=== PATIENT | female | born 2000 | race Caucasian/White ===

== ENCOUNTER 2025-08-20 01:05 | Day surgery (SDC) | payer OTHER, SELFPAY ==
[2025-08-12 15:01] VITALS: BMI 19.3
--- NOTE | 2025-08-12 15:09 | PC.NURSE ---
[facility] has started construction of its new state of the art ER which will open Spring 2026. With this, we anticipate parking may be a challenge for some our surgical patients and families. Parking spaces are limited but are available for all Surgical, obstetrics, and ER patients sharing this lot. If you arrive and find you are having a hard time finding a parking space, please note that we understand the challenges, please drive around the hospital and park near Hospital Entrance 1. When you enter this entrance, you can ask a volunteer to direct or take you back to the surgical waiting area to check in. We appreciate everyone?s understanding of these expected challenges while we build for your future. Report to the Outpatient Waiting Room, entrance under the green pavilion located off [address], at time __1130 on date _08/20/2025 . Planned Procedure Time: _1330 .? Time changes happen often and if your time is changed the preop area will call you the afternoon before. - You and your visitor will be asked to self-screen and do not enter if you have any COVID symptoms. Please call surgeon if you need to reschedule. - A mask is optional within the hospital at this time. Patients may have clear liquids (water, carbonated beverages, clear teas, apple juice) until 3 hours prior to surgery with a maximum of 20 ounces. - No food from midnight until time of surgery and no smoking, or chewing tobacco (or any form of nicotine). No chewing gum, candy or mints. - Infants may have breast milk until 4 hours before surgery, formula 6 hours prior to surgery. - Children will be allowed to drink immediately following surgery.? If applicable, please bring a bottle or sippy cup to assist with drinking. Juice, water, soda, and popsicles are readily available.? For infants on formula, please bring formula the day of surgery.? Pacifiers are allowed. Take only the following medications with a SIP of water on the morning of surgery: ____N/A DO NOT STOP ANY OF YOUR OTHER PRESCRIPTION MEDICATIONS PRIOR TO SURGERY EXCEPT THE FOLLOWING Hold all vitamins and supplements for 3 days per anesthesiologist. Medications to discontinue per physician ____N/A Date to take last dose N/A Please no make-up, nail ukrainian, hairspray, perfume, deodorant, or body powder the day of surgery.? No jewelry (including any body piercings) or valuables the day of surgery, leave them at home.? Please take a shower or bath the night before, or the morning of, surgery with an antibacterial soap.? Wear comfortable, loose fitting clothing.? Children are encouraged to wear pajamas. - Jewelry must be removed prior to entering the operating room.? Rings and piercings that are not removed may be cut off. - The hospital will not accept responsibility for valuables.? - Please leave all valuables, including medications, at home the day of surgery. If you are going home after surgery, a licensed patrol driver must drive you home.? - NO public transportation without another adult if you receive anesthesia. - We recommend that an adult stay with you for 24 hours following discharge. - We also recommend that you do not drive, make important decision, drink alcoholic beverages, or take any drugs that were not prescribed by your health care provider for at least 24 hours after your discharge time. For Pediatric surgeries, we recommend two adults accompany the child home. Follow any additional instructions given to you from your surgeon. Telephone instructions given to Ariadna and asked if any additional questions and then verbalized understanding. Patient advised to call surgeon office or pre surgery nurse liaison [phone] if any additional questions.
[2025-08-20] VITALS (9 sets, daily range): BP systolic 92–116; BP diastolic 58–73; PULSE 55–82; RESP 12–16; TEMP 36.5–36.9; O2SAT 97–100; BMI 20.7
--- OUTSIDE RECORDS SUMMARY | 2025-08-20 01:08 | XMS_ITS | Encounter Summary ---
Author Organization [facility] Address [address] [place] [address] Care Team Providers Care Project Coordinator Name Role Phone Emmanuel Brito MD Primary Care Provide r Encounter Details Date Type Department Care Team (Late st Contact Info) Description 12/23/2022 [facility] [id number] [address] [place] [address] [facility] Provider Schedule Appointment for Annual Physical Social History Tobacco Use Types Packs/Day Years Used Date Smoking Tobacco: Never Passive Smoke Exposure: Never Smokeless Tobacco: Never Alcohol Use Standard Drinks/Week Comments No 0 (1 standard drink = 0.6 oz pur e alcohol) AUDIT-C Answer Date Recorded Frequency of Alcohol Consumption Never 09/22/2018 Average Number of Drinks Not on file 019 Frequency of Binge Drinking Not on file 08/2018 PHQ-2 Answer Date Recorded Patient Health Questionnaire-2 Score 0 11/26/2022 Comments No Sex and Gender Information Value Date Recorded Sex Assigned at Not on file Legal Sex Female 11:14 PM CDT Gender Identity Not on file Sexual Orientation Not on file COVID-19 Exposure Response Date Recorded In the last 10 days, have yo u been in contact with someone who was confirmed or suspected to have Coronavirus/COVID-19? No / Unsure 11/26/2022 12:35 PM CDT documented as of this encounter Plan of Treatment Not on file documented as of this encounter Visit Diagnoses Not on filedocumented in this encounter Additional Health Concerns Assessment Noted Time PHQ-9 Depression Total Score: 0 11/12/19 22 2:10 PM CDT documented as of this encounter Care Teams Project Coordinator Relationship Specialty [place] [address] [place] [address] PCP - General INTERNAL MEDICINE 09/22/18 documented as of this encounter
--- OUTSIDE RECORDS SUMMARY | 2025-08-20 01:08 | XMS_ITS | Clinical Summary ---
Author Organization [facility] Address [address] [place] [address] Care Team Providers Care Enrollment Clerk Name Role Phone Emmanuel Brito MD Primary Care Provide r Allergies Active Allergy Reactions Criticality Noted Date Comments Amoxicillin Diarrhea,Nausea and Vomiting Low 2015 Medications fluticasone propionate (FLONASE) 50 MCG/ACT nasal sprayIndications:Va somotor rhinitis 2 sprays by Nasal route daily. 16 g 11 08/23/19 20 Active Additional Information Patient taking differently:2 spray NasalDAILY PRN, Reported on 11/26/2022 Levocetirizine Dihydrochloride (XYZAL OR) Take 1 tablet by mouth daily. Active clindamycin 1 % lotion Apply topically nightly at bedtime. apply to face at bedtime 07/02/20 20 Active mupirocin 2 % ointmentIndications :Plantar wart Apply topically 2 (two) times daily. 22 g 08/20/20 20 Active tretinoin (RETIN-A) 0.05 % cream APPLY 1 APPLICATION TO FACE AT BEDTIME X 30 DAYS 11/11/19 23 Active pantoprazole EC (PROTONIX) 40 MG tabletIndications:G astroesophageal reflux disease without esophagitis Take 1 tablet (40 mg total) by mouth daily. 30 tablet 5 11/27/19 23 Active Active Problems Problem Noted Date Diagnosed Date Allergic rhinitis caused by mold 06/17/2021 Allergic rhinitis, seasonal 06/17/2021 Chronic constipation 08/30/2020 Plantar callus 08/20/2020 Adolescent idiopathic scoliosis, thoracic region 03/30/2016 Immunizations Immunization Administration Dates Next Due Dtap (Generic) 04/02/2008, 4,01/16/2003,2002 ,2002 Hepatitis B 07/12/2003,03/07/2003,2002 Hib Vaccine, Prp-Omp 07/12/2003,2002,09/07 Influenza Adult (Generic) 07/14/2015 MMR (Generic) 04/02/2008,10/18/2003 Meningococcal (Menactra) 03/31/2020 Meningococcal Vac A,C,Y,W-135 Sc 03/01/2014 Pneumococcal (Prevnar 13) 07/12/2003,01/16/2003, 2002 Polio Ipv (Generic) 04/02/2008,10/18/2003,2002,2002 Tdap (Generic) 02/19/2024,03/01/2014 Varicella Vaccine 04/02/2008,07/12/2003 Family History Medical History Relation Comments None Brother None Father None Maternal Aunt Kidney Disease Maternal Grandfather Stroke Maternal Grandfather None Maternal Grandmother None Mother None Paternal Aunt None Paternal Grandfather None Paternal Grandmother None Paternal Uncle Relation Status Comments Brother Father Alive Maternal Aunt Maternal Grandfather Maternal Grandmother Alive Mother Alive Paternal Aunt Paternal Grandfather Alive Paternal Grandmother Alive Paternal Uncle Social History Tobacco Use Types Packs/Day Years Used Date Smoking Tobacco: Never Passive Smoke Exposure: Never Smokeless Tobacco: Never Tobacco Cessation:Counseling Given: Not Answered Alcohol Use Standard Drinks/Week Comments No 0 [...] on file Sexual Orientation Not on file Last Filed Vital Signs Vital Sign Reading Time Taken Comments Blood Pressure 120/64 10/28/2020 9:55 AM CARPORT ERECTOR Pulse 92 10/28/2020 9:55 AM CARPORT ERECTOR Temperature 36.9 C (98.4 F) 10/28/2020 9:55 AM CARPORT ERECTOR Respiratory Rate 16 10/28/2020 9:55 AM CARPORT ERECTOR Oxygen Saturation 98% 10/28/2020 9:55 AM CARPORT ERECTOR Inhaled Oxygen Concentration - - Weight 77.5 kg (170 lb 14.4 oz) 10/28/2020 9:55 AM CARPORT ERECTOR Height 165.1 cm (5' 5) 08/29/2020 2:06 PM CARPORT ERECTOR Body Mass Index 28.44 08/29/2020 2:06 PM CARPORT ERECTOR Plan of Treatment Health Maintenance Due Date Last Done Comments Cervical Cancer Screening Pap Smear (Age 21 to 29) Every 3 Years 2002 Cervical Cancer Screening 2002 HPV Vaccines (1 - 3-dose series) 2017 Meningococcal B Vaccine (1 of 2 - Standard) 2018 Hepatitis C 2020 Annual Physical 03/31/2021 03/31/2020, 03/26/2019 PHQ-2 ([employer]ician [employer] [place]) 08/22/2024 COVID-19 Vaccine ( season) 2025 07/08/2022, 06/17/2022 Influenza Adult (#1) 2025 06/13/2023, 06/17/2022, 07/14/2015 DTaP, Tdap and Td Vaccines (8 - Td or Tdap) 02/18/2034 02/19/2024, 03/01/2014, 04/02/2008, Additional history exists Hepatitis B Vaccines Completed 07/12/2003, 03/07/2003, 2002 Pneumococcal Vaccine: Pediatrics (0 to 5 Years) and At-Risk Patients (6 to 49 Years) Completed 07/12/2003, 01/16/2003, 2002 Meningococcal Vaccine Completed 03/31/2020, 014 Hepatitis A Vaccines Aged Out No long er eligible based on patient's age to complete this topic RSV Immunizations Under 20 Months Aged Out No longer eligible based on patient's age to complete this topic Insurance [facility] [place] [id number] [facility] Jamn [facility] [place] [address] [facility] Care Teams Enrollment Clerk Relationship Specialty [place] [address] [place] [address] PCP - General INTERNAL MEDICINE 09/22/18
--- OUTSIDE RECORDS SUMMARY | 2025-08-20 01:08 | XMS_ITS | Encounter Summary ---
Author Organization [facility] Address [address] [place] [address] Care Team Providers Care Porcelain Turner Name Role Phone Emmanuel Brito MD Primary Care Provide r Encounter Details Date Type Department Care Team (Late st Contact Info) Description 01/23/2025 Lab Requisition [facility] - DermPath Lab [address] [facility] [facility] [place] [place] [address] Radha Reynoso MD [address] [facility] [address] [place] [address] Social History Tobacco Use Types Packs/Day Years Used Date Smoking Tobacco: Never Assessed Comments Unknown Sex and Gender Information Value Date Recorded Sex Assigned at Not on file Legal Sex Female 9:41 AM CDT Gender Identity Not on file Sexual Orientation Not on file documented as of this encounter Plan of Treatment Not on file documented as of this encounter Procedures Procedure Name Priority Date/Time Associated Diagnosis Comments DERMATOPATHOLOGY Routine 01/23/2025 9:02 AM CDT documented in this encounter Results * DERMATOPATHOLOGY (01/23/2025 9:02 AM CDT) Case Report Dermatopathology Report Case: [id number] Authorizing Provider: Radha Reynoso MD Collected: 01/23/2025 09:02 AM Ordering Location: [facility] - Received: 01/24/2025 08:02 AM DermPath Lab Pathologist: Nael Hayden MD Specimen: Skin, upper back 12:41 PM CDT DERMATOPATHOLOGY LABORATORY Final Diagnosis Specimen A. SKIN, upper back: LENTIGINOUS MELANOCYTIC NEVUS, COMPOUND TYPE, IRRITATED (D22.5) 12:41 PM T DERMATOPATHOLOGY LABORATORY at 1241 CDT Clinical History Nevus R/O Atypia Irregular Color Irregular border 12:41 PM CDT DERMATOPATHOLOGY LABORATORY Gross Description Specimen A: Received is one formalin filled container labeled with the patient's name and designated upper back. The specimen consists of a shave biopsy measuring 6x4x1 mm. Jar 0. 12:41 PM CDT DERMATOPATHOLOGY LABORATORY Microscopic Description Specimen A. SKIN, upper back: This is a compound nevus. There is melanin pigment in the stratum corneum. There is a lentiginous proliferation of melanocytes between nevus nests of cells along the dermal epidermal junction. There is underlying fibroplasia of the papillary dermis. The intradermal component is bland in appearance and matures with depth. (Compound Harinder's Nevus) 12:41 PM CDT DERMATOPATHOLOGY LABORATORY Disclaimer An external and internal positive and negative controls are appropriate for the histochemical, immunohistochemical and immunofluorescence stain(s) in this case (if any), except where stated explicitly. The performance characteristics of the stain(s) cited in this report were developed and its performance characteristic determined by the Dermatopathology Laboratory at [facility], directed by Dr. Brenna Hayden. These tests need not be, and therefore are not, approved by the [place] Food and Drug Administration. The tests are used for clinical purposes. Billing Codes Specimen Charges Stain Charges 19909 1 12:41 PM CDT DERMATOPATHOLOGY LABORATORY Embedded Images 12:41 PM CDT DERMATOPATHOLOGY LABORATORY Pathology/Cytolo gy TISSUE SPECIMEN FROM SKIN / Unknown 01/23/2025 9:02 AM CDT 01/24/2025 8:02 AM CDT us Radha Reynoso MD LAB - PATHOLOGY/CYTOLOGY OR DERABLES Final Result DERMATOPATHOLOGY LABORATORY [facility] - Department of Dermatology [address], [address] [phone] documented in this encounter Visit Diagnoses Not on filedocumented in this encounter Care Teams Porcelain Turner Relationship Specialty Start Date End Date Emmanuel Brito MD [address] [place] [address] PCP - General Pediatrics 11/25/16 documented as of this encounter
--- OUTSIDE RECORDS SUMMARY | 2025-08-20 01:08 | XMS_ITS | Clinical Summary ---
Author Organization [employer] [facility] Address [address] [facility] [email or web address] [address] Care Team Providers Care Procurement Accountant Name Role Phone Pcp, No Primary Care Provider [phone] Social History Tobacco Use Types Packs/Day Years Used Date Smoking Tobacco: Never Assessed Comments Unknown Sex and Gender Information Value Date Recorded Sex Assigned at Not on file Legal Sex Female 1:25 PM EDT Gender Identity Not on file Sexual Orientation Not on file Plan of Treatment Not on file Medical Devices Not on file Insurance [facility] [place] [address] [employer] Care Teams Procurement Accountant Relationship Specialty Start Date End Date Pcp, Lidia PCP - General Family Medicine 09/04/21
--- OUTSIDE RECORDS SUMMARY | 2025-08-20 01:08 | XMS_ITS | Clinical Summary ---
Author Organization [facility] Address [address] [place] [address] Care Team Providers Care Train Attendant Name Role Phone Emmanuel Brito MD Primary Care Provider Allergies Active Allergy Reactions Criticality Noted Date Comments Amoxicillin Unknown 05/31/2019 Medications ENSKYCE 0.15-0.03 mg per tablet 3 03/06/2019 Activ e tretinoin (RETIN-A) 0.1 % cream 0 04/16/2019 Active Active Problems Problem Noted Date Diagnosed Date Adolescent idiopathic scoliosis 11/23/2016 Immunizations Immunization Administration Dates Next Due DTaP, Unspecified 04/02/2008, 4,01/16/2003,2002,0 2002 Hep B, Unspecified 07/12/2003,03/07/2003, 002 HiB 07/12/2003,2002,2002 MMR 04/02/2008,10/18/2003 Meningococcal MCV4P (Menactra) 03/01/2014 Pneumococcal Conjugate PCV 13 07/12/2003, 003,2002 Polio, Unspecified 04/02/2008,10/18/2003, 003,2002 Tdap 03/01/2014 Varicella 04/02/2008,07/12/2003 Social History Tobacco Use Types Packs/Day Years Used Date Smoking Tobacco: Never Smokeless Tobacco: Never Alcohol Use Standard Drinks/Week Comments Never 0 (1 standard drink = 0.6 oz pur e alcohol) AUDIT-C Answer Date Recorded Frequency of Alcohol Consumption Never 05/08/2019 Average Number of Drinks Not on file 019 Frequency of Binge Drinking Not on file 04/22 Personal Safety Answer Date Recorded Getting School Help Needed Not on file 11/04 Comments Unknown Sex and Gender Information Value Date Recorded Sex Assigned at Not on file Legal Sex Female 6:02 AM SHIFT SUPERINTENDENT CAUSTIC CRESYLATE Gender Identity Not on file Sexual Orientation Not on file Plan of Treatment Not on file Insurance [facility] [place] [id number] [address] [place] [facility] [place] [id number] [facility] PPO [facility] PPO Care Teams Train Attendant Relationship Specialty Start Date End Date Emmanuel Brito MD PCP - General 12/08/16
--- OUTSIDE RECORDS SUMMARY | 2025-08-20 01:08 | XMS_ITS | Clinical Summary ---
Author Organization [facility] Care Team Providers Care Morphology Teacher Name Role Phone Unavailable Primary Care Provider Unavailabl e Social History Tobacco Use Types Packs/Day Years Used Date Smoking Tobacco: Never Assessed Comments Unknown Sex and Gender Information Value Date Recorded Sex Assigned at Not on file Legal Sex Female 10:48 AM MORTGAGE ACCOUNTING CLERK Gender Identity Not on file Sexual Orientation Not on file Plan of Treatment Health Maintenance Due Date Last Done Comments Hepatitis C Virus (HCV) Screening 2002 Human Papillomavirus (HPV) Immunization (1 - 3-dose series) 2017 Meningococcal B Immunization (1 of 2 - Standard) 2018 Influenza Immunization (#1) 2025 SARS-COV-2 Immunization ( - season) 2025 Respiratory Syncytial Virus (RSV) Immunization (Adult) (1 - 1-dose 75+ series) 2077 Hepatitis B Immunization Completed 003, 03/07/2003, 2002 Pneumococcal Immunization Combined Completed 07/12/2003, 01/16/2003, 2002 Measles Mumps Rubella (MMR) Immunization Discontinued 04/02/2008, 10/18/2003 Varicella Immunization Discontinued 04/02/2008, 2002 DTaP/Tdap/Td Immunization Discontinued 2013, 04/02/2008, 10/18/2003, Additional history exists TdaP Immunization Completed 03/01/2014 Meningococcal Immunization (ACWY) Completed 03/31/2020, 03/01/2014 Rotavirus Immunization Aged Out No lo nger eligible based on patient's age to complete this topic
--- OUTSIDE RECORDS SUMMARY | 2025-08-20 01:08 | XMS_ITS | Clinical Summary ---
Author Organization [facility] [employer] Address [address] [facility] [place] [address] Care Team Providers Care Retail Client Solutions Consultant Name Role Phone Emmanuel Brito MD Primary Care Provide r Source Comments [facility] [employer],non-owned Affiliates and Associated Physician Practices is amultiple site organization consisting of ambulatory clinics and hospital sitesin [place], [place], [place] and [place]. This disclosure is being madepursuant to the Care Everywhere program and may not contain all information available regarding this patient. Last updated 18.[facility] [employer] Allergies No known active allergies Medications * Be aware that medications may not be up to date on this document. Alwaysverify current medications with the patient. No known medications Family History Medical History Relation Name Comments Negative Family History Neg Hx Social History Tobacco Use Types Packs/Day Years Used Date Smoking Tobacco: Never Assessed Comments Unknown Sex and Gender Information Value Date Recorded Sex Assigned at Not on file Legal Sex Female 9:41 AM CDT Gender Identity Not on file Sexual Orientation Not on file Last Filed Vital Signs Vital Sign Reading Time Taken Comments Blood Pressure - - Pulse - - Temperature - - Respiratory Rate - - Oxygen Saturation - - Inhaled Oxygen Concentration - - Weight 59.2 kg (130 lb 8.2 oz) 12/10/2016 10:47 AM CDT Height 164 cm (5' 4.57) 12/10/2016 10:47 AM CDT Body Mass Index 22.01 12/10/2016 10:47 AM CDT Plan of Treatment Health Maintenance Due Date Last Done Comments HIV SCREENING 2017 HPV VACCINE (1 - 3-dose series) 2017 CHLAMYDIA/GONORRHEA SCREENING 2018 MENINGOCOCCAL (Group B) VACC INE SHARED DECISION-MAKING (1 of 2 - Standard) 2018 HEPATITIS C SCREENING 07/11/2020 DTAP/TDAP/TD VACCINES (1 - Tdap) 2021 HEPATITIS B VACCINE (1 of 3 - 19+ 3-dose series) 2021 PAP SMEAR 2023 DEPRESSION SCREENING 08/22/2024 COVID-19 VACCINE (1 - 2024-2 6 season) 2025 INFLUENZA VACCINE (#1) 2025 ZOSTER VACCINE (1 of 2) 2052 HIB VACCINE Aged Out No longer eligi ble based on patient's age to complete this topic MENINGOCOCCAL GROUPS A/C/Y/W VACCINE Aged Out No longer eligible b ased on patient's age to complete this topic PNEUMOCOCCAL VACCINE Aged Out No long er eligible based on patient's age to complete this topic Insurance * Guarantor: HOLLY WEBSTER Account Type Relation to Patient Date of Phone Billing Address Personal/Family [address] [place] [address] [employer] * Guarantor: HOLLY WEBSTER Account Type Relation to Patient Date of Phone Billing Address Personal/Family [address] [facility] [place] [address] Care Teams Retail Client Solutions Consultant Relationship Specialty Start Date End Date Emmanuel Brito MD [address] [place] [address] PCP - General Pediatrics 11/25/16
[2025-08-20] MEDS: LACTATED RINGERS 1,000 ML 30 ML IV CONT ×2 (11:45→16:20)
[2025-08-20] MEDS: TRANEXAMIC ACID 1,000MG/ISO100 1,000 MG/100 ML BAG 200 MG IVPB (13:11)
[2025-08-20] MEDS: SCOPOLAMINE 1 MG PATCH 1 PATCH TRANSDERM (13:41)
--- NOTE | 2025-08-20 14:36 | P.PNAN_ITS ---
Anes - Initial Pre Proc Eval Procedure: Operation Date: 08/20/25 13:30 Proposed Procedures p Bilateral Breast Augmentation - Juan Manuel Youssef MD Date/Time: 08/20/25 14:36 Surgeon: Juan Manuel Youssef MD Pre Op Diagnosis: micromastia Patient Data Age: 25 Gender: F Height: 1.68 m Weight: 58.1 kg Last Vital Signs Temp 36.5 C 08/20/25 11:25 Pulse 63 08/20/25 11:25 Resp 16 08/20/25 11:25 BP 92/58 L 08/20/25 11:25 Pulse Ox 100 08/20/25 11:25 O2 Del Method Room Air 08/20/25 11:25 Allergies Allergy/AdvReac Type Severity Reaction Status Date / Time No Known Allergies Allergy Verified 08/12/25 15:00 Home Medications ?Medication ?Instructions ?Recorded ?Confirmed ?Type lactobacillus combo no.11 15 1 cap PO DAILY 08/12/25 1 10/13/24 History billion cell sprinkle capsule (Probiotic) Patient hx anesthesia problems: none Family hx anesthesia problems: none Results Review: All pre-operative results and documents have been reviewed as part of the pre- operative evaluation. PMFSH Social History Social History Smoking status: Never smoker Drinks per week: 2 Alcohol use details: 2 Socially Living arrangements: alone Spiritual care concerns: No Anes - Eval Final PreProcedure Day of Procedure 08/20/25 14:36 Patient weight: normal Heart: regular rate and rhythm Lungs: clear to auscultation Airway: Mallampati scale class II Neurological: alert and oriented Last oral intake: >/= 8 hours ASA classification: I Emergent: no Anesthetic plan: proceed Anesthesia type and monitoring: general LMA and standard monitoring Results Review: All pre-operative results and documents have been reviewed as part of the pre- operative evaluation. Informed Consent: The patient's anesthetic plan and its attendant risks and benefits were discussed with the patient/family/POA. Questions were solicited and answers provided to the satisfaction of the patient/family/POA.
--- NOTE | 2025-08-20 14:59 | WPDHPUPDATE1 ---
History and Physical Update Update Date/Time: 08/20/25 14:59 History and Physical has been reviewed, including an updated exam of the patient. There are NO changes in the patient's condition. Risks, benefits, and alternatives have been discussed and questions answered. Patient agrees to proceed with procedure.
--- NOTE | 2025-08-20 15:03 | P.OP_ITS ---
Procedure Note - Detailed Date of Procedure 08/20/25 Pre-op Diagnosis micromastia Post-op Diagnosis Same Procedure Performed Bilateral augmentation mammaplasty Surgeon Juan Manuel Youssef MD Anesthesia General Findings Bilateral Rizwana Salazar SoftTouch 345 cc Dual plane 1 Right: REF# [id number] SN [id number] Left: REF# [id number] SN [id number] Description of Procedure She is here today for bilateral breast augmentation. Previously and again today the risks, benefits, alternatives were discussed in extensive detail. I wanted her to be very realistic about the risks involved as well as expectations. We again discussed implant placement and sizing. She liked 330cc and would prefer that or slightly larger. After discussing options she is happy with selection as above and dual plane placement (knowing pros and cons of this placement). We discussed aftercare and what to monitor for. Made sure answered all of her questions to her satisfaction today and consent was obtained. Marked in the preoperative holding area with their verification. The patient was taken to the operating room placed supine on the operating table. Anesthesia was provided by anesthesiology. A surgical time-out was taken. We cleansed the skin and 1% lidocaine and 0.25% Marcaine with epinephrine was used anesthetize as a field block. She was prepped and draped in a standard sterile fashion. Tegaderm nipple Ritchie were placed. A 15 blade used to make an incision along the inframammary fold. Dissection was continued at 45 degree angle until the chest wall as identified. I incised the pectoralis major along its inferior border and completely released the inferior border leaving the medial border intact. I created a subpectoral pocket in the appropriate dimensions based on our preoperative planning for the implant. I then copiously irrigated with saline solution and verified a strict hemostasis. Next the use a triple antibiotic and Betadine containing solution to irrigate the pocket. I washed my gloves with the triple antibiotic and Betadine solution. We washed the implant immediately upon opening it with this solution and only opened it when we needed it. On the back table I prepped the implant to remove all air. It was introduced into the pocket and utilizing an implant fill kit filled to the volume above. The fill tubing was removed and I verified the valve sealed. Having verified positioning of the implant this was closed using 2-0 PDS foll owed by 3-0 Monocryl in a running subcuticular 4-0 Monocryl followed by tissue glue. Fluffs and surgical bra were placed. Patient was awoke and taken to PACU without difficulty. All instrument sponge counts were correct at the end of the case. Estimated Blood Loss 20 Drains No Packing No Pathology None sent Complications No immediate complications Condition Stable Disposition PACU
[2025-08-20] MEDS: ceFAZolin 2 GM in SODIUM CHLORIDE 0.9% IV 50 ML 100 ML IVPB (15:19)
[2025-08-20 15:22] LABS: BEDSIDEPREGUCG Negative (Negative)
[2025-08-20] MEDS: NACL 0.9% IRRIG POUR BOTTLE 900 ML, GENTAMICIN SULFATE INJ 160 MG, ceFAZolin 2 GM, POVI... IRRIGATION (15:59)
[2025-08-20] MEDS: LIDO 1%/EPINEPHRINE 1:100,000 50 ML VIAL (16:00)
[2025-08-20] MEDS: fentaNYL CITRATE INJ (*CRX) 100 MCG/2 ML VIAL 25 MCG IV PUSH ×6 (16:28→16:55)
== END 2025-08-20 18:25 | disposition home or self-care (01) ==
PROVIDERS: PCP Pediatrics; Visit Provider Surgery Plastic and Reconstructive Surgery
PROC: (CPT 19325; principal; 2025-08-20 13:30)
DX: Z41.1 Encounter for cosmetic surgery (principal); N64.82 Hypoplasia of breast
CPT/HCPCS: 19325; J0690; A9270; J1100; J1580; J2003; J2004; J2250; J2405; J2704; J3010; J3290; J7120